=== PATIENT | female | born 1990 | race Caucasian/White ===

== ENCOUNTER 2019-10-13 12:48 | Emergency (ER) | payer BC ==
[2019-10-13 12:54] VITALS: RESP 18
[2019-10-13] MEDS ORDERED: SODIUM CHLORIDE 0.9% 1,000 ML IV ONE (13:06)
--- NOTE | 2019-10-13 13:14 | ED ---
Abdominal Pain HPI - General Chief Complaint: Abdominal Pain Stated Complaint: Cramping, 7wks preg Time Seen by Provider: 10/13/19 12:53 Source: patient, RN notes reviewed, old records reviewed Mode of arrival: ambulatory Limitations: no limitations - History of Present Illness Initial Comments: Patient is a 29-year-old female presents emergency department today for a violation with complaints of right lower quadrant abdominal pain and cramping onset today. She is 7 weeks . Patient states that she follows with Dr. Bonilla at [facility]. She is a female. She states that she's had no vaginal bleeding or discharge. Denies dysuria or hematuria. She reports the cramping is somewhat subsiding at this time. She had ultrasounds were [employer] appointments for this current . - Related Data Allergies Allergy/AdvReac Type Severity Reaction Status Date / Time amoxicillin AdvReac Itching Verified 10/13/19 12:54 Review of Systems ROS Statement: Those systems with pertinent positive or pertinent negative responses have been documented in the HPI. ROS Other: All systems not noted in ROS Statement are negative. Past Medical History Past Medical History: No Reported History History of Any Multi-Drug Resistant Organisms: MRSA Date of last positivie culture/infection: 2010 MDRO Source:: blood Additional Past Surgical History / Comment(s): hemmroidectomy Past Psychological History: Anxiety Smoking Status: Never smoker Past Alcohol Use History: None Reported Past Drug Use History: Marijuana General Exam - General Exam Comments Initial Comments: 29-year-old female. Alert and oriented. No distress. Limitations: no limitations General appearance: alert, in no apparent distress Head exam: Present: atraumatic, normocephalic, normal inspection Eye exam: Present: normal appearance, PERRL, EOMI. Absent: scleral icterus, conjunctival injection, periorbital swelling ENT exam: Present: normal exam, mucous membranes moist Neck exam: Present: normal inspection. Absent: tenderness, meningismus, lymphadenopathy Respiratory exam: Present: normal lung sounds bilaterally. Absent: respiratory distress, wheezes, rales, rhonchi, stridor Cardiovascular Exam: Present: regular rate, normal rhythm, normal heart sounds. Absent: systolic murmur, diastolic murmur, rubs, gallop, clicks GI/Abdominal exam: Present: soft, tenderness (Right lower quadrant tenderness.), normal bowel sounds. Absent: distended, guarding, rebound, rigid Extremities exam: Present: normal inspection, full ROM, normal capillary refill. Absent: tenderness, pedal edema, joint swelling, calf tenderness Back exam: Present: normal inspection Neurological exam: Present: alert Psychiatric exam: Present: normal affect, normal mood Skin exam: Present: warm, dry, intact, normal color. Absent: rash Course Vital Signs 10/13/19 10/13/19 12:50 15:01 Temperature 98.6 F 97.8 F Pulse Rate 87 78 Respiratory 18 18 Rate Blood Pressure 127/87 101/69 O2 Sat by Pulse 98 99 Oximetry Medical Decision Making - Medical Decision Making 29 year old female presents with cramping in . Rh positive. US shows viable IUP, with R ovarian cyst. she has no bleeding and discussed to follow up with OB and PCP. - Lab Data Result diagrams: 10/13/19 13:36 Lab Results 10/13/19 10/13/19 10/13/19 Range/Units 13:07 13:36 13:36 WBC 14.1 H (3.8-10.6) k/uL RBC 4.85 (3.80-5.40) m/uL Hgb 13.3 (11.4-16.0) gm/dL Hct 41.0 (34.0-46.0) % MCV 84.7 (80.0-100.0) fL MCH 27.5 (25.0-35.0) pg MCHC 32.5 (31.0-37.0) g/dL RDW 12.8 (11.5-15.5) % Plt Count 281 (150-450) k/uL Neutrophils % 89 % Lymphocytes % 7 % Monocytes % 2 % Eosinophils % 1 % Basophils % 0 % Neutrophils # 12.6 H (1.3-7.7) k/uL Lymphocytes # 0.9 L (1.0-4.8) k/uL Monocytes # 0.3 (0-1.0) k/uL Eosinophils # 0.1 (0-0.7) k/uL Basophils # 0.0 (0-0.2) k/uL PT 10.3 (9.0-12.0) sec INR 1.0 (<1.2) APTT 23.5 (22.0-30.0) sec HCG, Quant mIU/mL Urine Color Colorless Urine Appearance Clear (Clear) Urine pH 6.5 (5.0-8.0) Ur Specific [place] 1.002 (1.001-1.035) Urine Protein Negative (Negative) Urine Glucose (UA) Negative (Negative) Urine Ketones Trace H (Negative) Urine Blood Negative (Negative) Urine Nitrite Negative (Negative) Urine Bilirubin Negative (Negative) Urine Urobilinogen <2.0 (<2.0) mg/dL Ur Leukocyte Esterase Negative (Negative) Trichomonas Ag (Rapid) (Negative) Blood Type Blood Type Recheck Bld Type Recheck Status 10/13/19 10/13/19 10/13/19 Range/Units 13:36 13:36 14:22 WBC (3.8-10.6) k/uL RBC (3.80-5.40) m/uL Hgb (11.4-16.0) gm/dL Hct (34.0-46.0) % MCV (80.0-100.0) fL MCH (25.0-35.0) pg MCHC (31.0-37.0) g/dL RDW (11.5-15.5) % Plt Count (150-450) k/uL Neutrophils % % Lymphocytes % % Monocytes % % Eosinophils % % Basophils % % Neutrophils # (1.3-7.7) k/uL Lymphocytes # (1.0-4.8) k/uL Monocytes # (0-1.0) k/uL Eosinophils # (0-0.7) k/uL Basophils # (0-0.2) k/uL PT (9.0-12.0) sec INR (<1.2) APTT (22.0-30.0) sec HCG, Quant 36375.7 mIU/mL Urine Color Urine Appearance (Clear) Urine pH (5.0-8.0) Ur Specific [place] (1.001-1.035) Urine Protein (Negative) Urine Glucose (UA) (Negative) Urine Ketones (Negative) Urine Blood (Negative) Urine Nitrite (Negative) Urine Bilirubin (Negative) Urine Urobilinogen (<2.0) mg/dL Ur Leukocyte Esterase (Negative) Trichomonas Ag (Rapid) Negative (Negative) Blood Type O Positive Blood Type Recheck No Previous Record Bld Type Recheck Status [facility] ONLY - Radiology Data Radiology results: report reviewed US shows viable IUP measuring 6 weeks and 6 days. Right ovarian cyst. Disposition Clinical Impression: Abdominal cramping affecting , Ovarian cyst Disposition: HOME SELF-CARE Condition: Good Instructions (If sedation given, give patient instructions): (ED), Ovarian Cyst (ED) Additional Instructions: Please follow up with family doctor or OBGYN if symptoms have not improved over the next two days. Please return to the emergency room if your symptoms increase or worsen or for any other concerns. Is patient prescribed a controlled substance at d/c from ED?: No Referrals: None,Stated [Primary Care Provider] - 1-2 days Time of Disposition: 14:51
[2019-10-13 13:49] LABS: Basophils % (A) 0 %; Eosinophils # (A) 0.1 k/uL (0-0.7); Eosinophils % (A) 1 %; HGB 13.3 gm/dL (11.4-16.0); Lymphocytes # (A) 0.9 k/uL (1.0-4.8); Lymphocytes % (A) 7 %; MCH 27.5 pg (25.0-35.0); MCHC 32.5 g/dL (31.0-37.0); MCV 84.7 fL (80.0-100.0); Mean Platelet Volume 6.7; Monocytes # (A) 0.3 k/uL (0-1.0); Monocytes % (A) 2 %; Neutrophils # (A) 12.6 k/uL (1.3-7.7); Neutrophils % (A) 89 %; Platelet Count 281 k/uL (150-450); RBC 4.85 m/uL (3.80-5.40); RDW 12.8 % (11.5-15.5); WBC 14.1 k/uL (3.8-10.6)
[2019-10-13 13:57] LABS: Partial Thromboplastin Time 23.5 sec (22.0-30.0); Prothrombin Time 10.3 sec (9.0-12.0)
--- NOTE | 2019-10-13 14:26 | US ---
EXAMINATION TYPE: Transabdominal DATE OF EXAM: 10/13/2019 2:10 PM COMPARISON: NONE CLINICAL HISTORY: pain right sided, no us, 7 weeks . right side pain EXAM PERFORMED: Transabdominal (TA) EXAM MEASUREMENTS: GESTATIONAL AGE / DATING Dates by LMP: ( 6 weeks/5 days) EDC: 06/02/2020 Dates by First Scan: No previous this is first scan Dates by Current Scan for: ( 6 weeks/6 days) EDC: 06/01/2020 MATERNAL ANATOMY Uterus: 9.5 x 7.4 x 5.5 cm Right Ovary: 3.9 x 1.9 x 1.9 cm Left Ovary: 2.6 x 1.3 x 1.4 cm Post CDS / Adnexa: free fluid Presence of corpus luteal cyst: right ovarian lesion with peripheral vascular flow = 2.0 x 1.5 x 1.6 cm Presence of subchorionic bleed: no GESTATION / SURVEY CRL: 0.9 cm (6 weeks/6 days) MSD: seen, not measured Yolk Sac (normal less than 6mm): 2.6 mm Heart Rate: 130 bpm Rhythm: Normal IUP: Viable IUP Date of LMP: 08/27/2019, Beta HcG (if available): Not available at this time Single live IUP measuring 6 weeks 6 days IMPRESSION: Single viable intrauterine corresponding to an ultrasound age 6 weeks 6 days with estimated delivery 06/01/2020
[2019-10-13 14:36] LABS: Appearance,Urine Clear (Clear); Bilirubin,Urine Negative (Negative); Blood,Urine Negative (Negative); Color,Urine Colorless; Glucose,Urine (UA) Negative (Negative); Ketones,Urine Trace (Negative); Leukocyte Esterase,Urine Negative (Negative); Nitrite,Urine Negative (Negative); PH, Urine 6.5 (5.0-8.0); Protein,Urine Negative (Negative); Specific Gravity,Urine 1.002 (1.001-1.035); Urobilinogen,Urine <2.0 mg/dL (<2.0)
[2019-10-13 15:03] VITALS: BP 101/69; PULSE 78; TEMP 97.8
[2019-10-15 09:12] LABS: C. trachomatis,PCR Negative (Neg,Equiv); Chlamydia trachomatis Source Urine
[2019-10-15 09:13] LABS: N. gonorrhoeae,PCR Negative (Neg,Equiv); Neisseria Source Urine
== END 2019-10-13 15:03 | disposition home or self-care (01) ==
LOC: EC 12:48
DX: O99.89 Other specified diseases and conditions complicating pregnancy, childbirth and the puerperium (principal); R10.31 Right lower quadrant pain; O34.81 Maternal care for other abnormalities of pelvic organs, first trimester; N83.11 Corpus luteum cyst of right ovary; Z3A.01 Less than 8 weeks gestation of pregnancy; Z88.0 Allergy status to penicillin; Z86.14 Personal history of Methicillin resistant Staphylococcus aureus infection
CPT/HCPCS: 36415; 76801; 81003; 84702; 85025; 85610; 85730; 86900; 86901; 87070; 87491; 87591; 87808; 96360; 99284

== ENCOUNTER 2020-09-02 19:43 | Emergency (ER) | payer BC ==
[2020-09-02 19:49] VITALS: BP 133/89; PULSE 68; RESP 18; TEMP 98
--- NOTE | 2020-09-02 20:01 | ED ---
ENT HPI - General Chief complaint: ENT Stated complaint: object in ear Time Seen by Provider: 09/02/20 19:49 Source: patient Mode of arrival: ambulatory Limitations: no limitations - History of Present Illness Initial comments: 30-year-old female presenting for possible foreign body in the left ear. Patient states she believes loss or Q-tip in her left ear states she is sharp please there's as well as flushing the ear to attempt to get it out. Patient came to ER for evaluation. No additional complaints denies bleeding from the ear - Related Data Allergies Allergy/AdvReac Type Severity Reaction Status Date / Time amoxicillin AdvReac Itching Verified 09/02/20 19:49 Review of Systems ROS Statement: Those systems with pertinent positive or pertinent negative responses have been documented in the HPI. ROS Other: All systems not noted in ROS Statement are negative. Past Medical History Past Medical History: No Reported History History of Any Multi-Drug Resistant Organisms: MRSA Date of last positivie culture/infection: 2010 MDRO Source:: blood Additional Past Surgical History / Comment(s): hemmroidectomy Past Psychological History: Anxiety Smoking Status: Never smoker Past Alcohol Use History: Rare Past Drug Use History: Marijuana General Exam - General Exam Comments Initial Comments: General: The patient is awake and alert, in no distress, and does not appear acutely ill. Eye: Pupils are equal, round and reactive to light, extra-ocular movements are intact. No nystagmus. There is normal conjunctiva bilaterally. No signs of icterus. Ears, nose, mouth and throat: There are moist mucous membranes and no oral lesions. No foreign body, small abrasion at the 4oclock area of EAC. Neck: The neck is supple, there is no tenderness or JVD. Musculoskeletal: Normal ROM, no tenderness. Strength 5/5. Sensation intact. Pulses equal bilaterally 2+. Neurological: A&O x 3. CN II-XII intact, There are no obvious motor or sensory deficits. Coordination appears grossly intact. Speech is normal. Skin: Skin is warm and dry and no rashes or lesions are noted. Psychiatric: Cooperative, appropriate mood & affect, normal judgment. Limitations: no limitations Course Vital Signs 09/02/20 19:45 Temperature 98.0 F Pulse Rate 68 Respiratory 18 Rate Blood Pressure 133/89 O2 Sat by Pulse 97 Oximetry Medical Decision Making - Medical Decision Making After 3 evaluations to confirm, myself, Dr Collier and Adonay [employer]. No foreign body identified. small abrasion. discharged wit [facility] f/u. Disposition Clinical Impression: Abrasion Disposition: HOME SELF-CARE Condition: Good Additional Instructions: Please follow-up with family doctor in the next 2 days of symptoms have not improved. Please return to emergency room if the symptoms increase or worsen or for any other concerns. Is patient prescribed a controlled substance at d/c from ED?: No Referrals: None,Stated [Primary Care Provider] - 1-2 days Time of Disposition: 20:00
== END 2020-09-02 20:10 | disposition home or self-care (01) ==
LOC: EC 19:43
DX: S00.412A Abrasion of left ear, initial encounter (principal); X58.XXXA Exposure to other specified factors, initial encounter
CPT/HCPCS: 99282